=== PATIENT | female | born 1980 | race Caucasian/White ===

== ENCOUNTER 2017-04-17 11:37 | Emergency (ER) | payer OTHER ==
[2017-04-17 11:47] VITALS: BP 114/71; PULSE 83; TEMP 98.6; BMI 21.4
[2017-04-17] MEDS ORDERED: NAPROXEN 500 MG TABLET (FP) PO ONE (12:58)
[2017-04-17] MEDS ORDERED: NAPROXEN 500 MG TABLET (FP) ONE (12:59)
--- NOTE | 2017-04-17 13:20 | PDOC ---
History of Present Illness - General Chief Complaint: Back Pain Stated Complaint: LOWER BACK PAIN Time Seen by Provider: 04/17/17 12:24 - History of Present Illness Initial Comments: 04/17/17 13:16 36-year-old female with no significant past medical history presents with lower back pain for 2 days. The patient reports the pain began after she was bending over to put something in her daughter's drawer. She reports feeling a pop time. She reports similar symptoms in the past also 1 bending over or carrying something heavy. Last night she reports shooting pain down her left buttock and down the back of her leg but that has since resolved. She has not taken any medication for pain control. She denies any lower extremity weakness or numbness at any time. Denies any urinary or stool retention or incontinence. Denies fevers, chills, denies any drug use. Denies chest pain, shortness of breath, abdominal pain. Reports she is currently on control and there is no chance she is . Past History - Past Medical History Allergies/Adverse Reactions: Allergies Allergy/AdvReac Type Severity Reaction Status Date / Time No Known Allergies Allergy Verified 10/07/11 11:31 Home Medications: Ambulatory Orders Cyclobenzaprine HCl [Flexeril 10 mg] 10 mg PO BID PRN #8 tablet 04/17/17 Naproxen 500 mg PO BID PRN #10 tablet 04/17/17 Asthma: No Cancer: No Cardiac Disorders: No COPD: No Diabetes: No HTN: No Seizures: No Thyroid Disease: No - Suicide/Smoking/Psychosocial Hx Smoking History: Never smoked Have you smoked in the past 12 months: No Information on smoking cessation initiated: No Hx Alcohol Use: No Drug/Substance Use Hx: No Substance Use Type: None Hx Substance Use Treatment: No Review of Systems - Review of Systems Comments:: 04/17/17 13:18 GENERAL/CONSTITUTIONAL: No fever or chills. No weakness. HEAD, EYES, EARS, NOSE AND THROAT: No change in vision. No ear pain or discharge. No sore throat. GASTROINTESTINAL: No nausea, vomiting, diarrhea or constipation. GENITOURINARY: No dysuria, frequency, or change in urination. CARDIOVASCULAR: No chest pain or shortness of breath. RESPIRATORY: No cough, wheezing, or hemoptysis. MUSCULOSKELETAL: No joint or muscle swelling or pain. No neck pain. +back pain SKIN: No rash NEUROLOGIC: No headache, vertigo, loss of consciousness, or change in strength/ sensation. ENDOCRINE: No increased thirst. No abnormal weight change. HEMATOLOGIC/LYMPHATIC: No anemia, easy bleeding, or history of blood clots. ALLERGIC/IMMUNOLOGIC: No hives or skin allergy. *Physical Exam - Vital Signs Last Vital Signs Temp Pulse Resp BP Pulse Ox 98.6 F 83 20 114/71 83 L 04/17/17 11:37 04/17/17 11:37 04/17/17 11:37 04/17/17 11:37 04/17/17 11:37 - Physical Exam Comments: 04/17/17 13:19 GENERAL: Awake, alert, and fully oriented, in no acute distress HEAD: No signs of trauma EYES: PERRLA, EOMI, sclera anicteric, conjunctiva clear ENT: Auricles normal inspection, hearing grossly normal, nares patent, oropharynx clear without exudates. Moist mucosa NECK: Normal ROM, supple, no lymphadenopathy, JVD, or masses LUNGS: Breath sounds equal, clear to auscultation bilaterally. No wheezes, and no crackles HEART: Regular rate and rhythm, normal S1 and S2, no murmurs, rubs or gallops ABDOMEN: Soft, nontender, normoactive bowel sounds. No guarding, no rebound. No masses EXTREMITIES: Normal range of motion, no edema. No clubbing or cyanosis. No cords, erythema, or tenderness NEUROLOGICAL: Normal speech, cranial nerves intact, negative pronator drift, 5/ 5 strength in all 4 extremities, normal sensation to touch in all 4 extremities , normal cerebellar exam, normal gait, normal reflexes and tone BACK: no midline cervical, thoracic, or lumbar ttp. +paraspinal b/l lumbar ttp. +straight leg test L>R SKIN: Warm, Dry, normal turgor, no rashes or lesions noted. ED Treatment Course - Medications Given in the ED: ED Medications Discontinued Medications Generic Name Dose Route Start Last Admin Trade Name Freq PRN Reason Stop Dose Admin Naproxen 500 mg 04/17/17 12:58 04/17/17 12:59 Naprosyn - PO 04/17/17 12:59 500 mg ONCE ONE Administration Medical Decision Making - Medical Decision Making 04/17/17 13:20 36-year-old female presents with low back pain made worse by bending over or carrying heavy items. Vitals within normal limits, pulse ox on my exam 99% on room air. On exam, patient has no midline tenderness but does have positive paraspinal tenderness in the lumbar spine as well as positive straight leg raise. Likely muscle strain as well as possible herniated disks. No evidence of significant stenosis as patient has normal strength and sensation in her lower extremities and has no urinary or stool symptoms. I discussed with the patient that there would be little utility in obtaining an x-ray of the spine as there is low likelihood for bony injury, she defers on getting an x-ray for now. Will provide pain control with naproxen and reassess. 04/17/17 13:27 Pt reports improvement after naproxen and request DC home. I discussed the physical exam findings, ancillary test results and final diagnoses with the patient. I answered all of the patient's questions. The patient was satisfied with the care received and felt comfortable with the discharge plan and treatment plan. The patient will call their primary care physician within 24 hours to arrange follow-up and will return to the Emergency Department with any new, persistent or worsening symptoms. *DC/Admit/Observation/Transfer Diagnosis at time of Disposition: Back pain - Discharge Dispostion Disposition: HOME Condition at time of disposition: Stable Admit: No - Prescriptions Prescriptions: Cyclobenzaprine HCl [Flexeril 10 mg] 10 mg PO BID PRN #8 tablet PRN Reason: Muscle Spasms Naproxen 500 mg PO BID PRN #10 tablet PRN Reason: Pain - Referrals Referrals: Ahmet Collins MD [Staff Physician] - - Patient Instructions Printed Discharge Instructions: DI for Low Back Pain Additional Instructions: Call Dr. Collins office for a follow-up appointment with orthopedics within 1 week. Take naproxen as needed for pain. You have also been prescribed a muscle relaxer (flexeril), do not take this medication if you are driving or operating machinery as it can make you drowsy. Return to the emergency department if you have any new, worsening or concerning symptoms. - Post Discharge Activity - Attestations Physician Attestion: 04/17/17 13:25 I, Dr. Alejandra Emanuel MD, attest that this document has been prepared under my direction and personally reviewed by me in its entirety. I further attest, that it accurately reflects all work, treatment, procedures and medical decision -making performed by me.
== END 2017-04-17 13:30 | disposition home or self-care (01) ==
LOC: FER 11:37
DX: M54.5 Low back pain (principal)
CPT/HCPCS: 99283-25

== ENCOUNTER 2021-09-01 05:31 | Day surgery (SDC) | payer OTHER ==
[2021-08-28 13:15] VITALS: BMI 21.2
[2021-09-01] MEDS ORDERED: MIDAZOLAM HCL 2 MG/2 ML SINGLE DOSE VIAL ONE (10:29)
[2021-09-01] MEDS ORDERED: oxyCODONE HCL 5 MG TABLET PO PRN (10:48)
[2021-09-01] MEDS ORDERED: IBUPROFEN 400 MG TABLET (FP) PO PRN (10:48)
[2021-09-01] MEDS ORDERED: ACETAMINOPHEN 325 MG TABLET (FP) PO PRN (10:48)
[2021-09-01] MEDS ORDERED: LACTATED RINGERS SOLUTION 1,000 ML IV SCH (11:45)
[2021-09-01 13:25] VITALS: RESP 16
[2021-09-01 15:04] VITALS: BP 99/63; PULSE 73; TEMP 98
== END 2021-09-01 15:08 | disposition home or self-care (01) ==
LOC: JASU-SURG 05:31
PROVIDERS: ATTEND Obstetrics & Gynecology
PROC: 0UC98ZZ Extirpation of Matter from Uterus, Via Natural or Artificial Opening Endoscopic (ICD-10-PCS; principal; 2021-09-01 09:30)
PROC: 0UDB7ZZ Extraction of Endometrium, Via Natural or Artificial Opening (ICD-10-PCS; 2021-09-01 09:30)
PROC: 0UJD8ZZ Inspection of Uterus and Cervix, Via Natural or Artificial Opening Endoscopic (ICD-10-PCS; 2021-09-01 09:30)
DX: Z30.432 Encounter for removal of intrauterine contraceptive device (principal)
CPT/HCPCS: 81025; 88300-TC; 88305-TC; 94760